=== PATIENT | male | born 1985 | race Hispanic/Latino ===

== ENCOUNTER 2021-10-19 11:49 | Emergency (ER) | payer SELFPAY ==
[~2021-10-19] VITALS: Ht 167.6 cm; Wt 63.5 kg
[2021-10-19] MEDS ORDERED: ONDANSETRON HCL INJ 2MG/ML 2ML 2 MG/ML VIAL ONE (12:14)
[2021-10-19] MEDS ORDERED: FAMOTIDINE 20 MG/2 ML VIAL IV ONE (12:14)
[2021-10-19] MEDS ORDERED: KETOROLAC TROMETHAMINE 30 MG/ML VIAL ONE (12:14)
[2021-10-19] MEDS ORDERED: SODIUM CHLORIDE 0.9% 1000ML 1,000 ML ONE (12:14)
[2021-10-19] MEDS ORDERED: DONNATAL/LIDOCAINE/MAALOX 30 ML SUSP PO ONE (13:15)
[2021-10-19] MEDS ORDERED: BELLADONNA ALK/PHENOBARBITAL 5 ML UDC ONE (13:23)
[2021-10-19] MEDS ORDERED: LIDOCAINE VISC 2% SOLN 15 ML UDC ONE (13:23)
[2021-10-19] MEDS ORDERED: MAGNESIUM/ALUMINUM/SIMETHICONE 30 ML UDC ONE (13:24)
[2021-10-19] MEDS ORDERED: SODIUM CHLORIDE 0.9% 50ML 50 ML ONE (13:48)
[2021-10-19] MEDS ORDERED: IOPAMIDOL 370 MG/ML 200 ML INFUS..BTL INJ ONE (13:48)
[2021-10-19] MEDS ORDERED: PANTOPRAZOLE SO40 MG PO (15:13)
[2021-10-19] MEDS ORDERED: FAMOTIDINE40 MG PO (15:17)
[2021-10-19] MEDS ORDERED: ONDANSETRON ODT4 MG PO (15:28)
== END 2021-10-19 15:40 | disposition home or self-care (01) ==
LOC: FSED 12:07
DX: R11.2 Nausea with vomiting, unspecified (principal); K29.70 Gastritis, unspecified, without bleeding; R10.13 Epigastric pain
CPT/HCPCS: 74177; 80048; 80076; 81003; 85025; 96374; 96375; 96376; 99284; J1885; J2405; J7030; Q9967